=== PATIENT | male | born 1960 | race Caucasian/White ===

== ENCOUNTER 2023-06-06 15:38 | Emergency (ER) | payer SELFPAY ==
[2023-06-06] MEDS: hydrALAZINE 20 MG/ML SDV IVPUSH ONE ×2 (15:58→16:46)
[2023-06-06] MEDS: Sodium Chloride 0.9% 10 ML Syringe FLUSH PRN (16:00)
[2023-06-06] MEDS: Sodium Chloride 0.9% 1,000 ML IV SCH (16:00)
[2023-06-06 16:13] LABS: BASOPHILS ABSOLUTE AUTO 0.03 10^3/uL (0.00-0.10); BASOPHILS PERCENT AUTO 0.4 % (0.0-1.0); EOSINOPHILS ABSOLUTE AUTO 0.13 10^3/uL (0.10-0.30); EOSINOPHILS PERCENT AUTO 1.5 % (1.0-3.0); HEMATOCRIT 52.6 % (40.0-52.0); HEMOGLOBIN 17.4 g/dL (13.0-17.0); IMMATURE GRAN ABSOLUTE AUTO 0.03 10^3/uL (0.00-0.50); IMMATURE GRAN PERCENT AUTO 0.4 % (0.0-5.0); LYMPHOCYTES ABSOLUTE AUTO 2.01 10^3/uL (1.00-4.00); LYMPHOCYTES PERCENT AUTO 23.6 % (20.0-40.0); MEAN CORPUSCULAR HEMOGLOBIN 30.6 pg (27.0-31.0); MEAN CORPUSCULAR HGB CONC 33.1 g/dL (32.0-36.0); MEAN CORPUSCULAR VOLUME 92.6 fL (82.0-92.0); MEAN PLATELET VOLUME 11.4 fL (7.4-10.4); MONOCYTES ABSOLUTE AUTO 0.84 10^3/uL (0.10-0.80); MONOCYTES PERCENT AUTO 9.9 % (2.0-8.0); NEUTROPHILS ABSOLUTE AUTO 5.46 10^3/uL (2.50-7.00); NEUTROPHILS PERCENT AUTO 64.2 % (50.0-70.0); PLATELET COUNT,PLT 169 10^3/uL (150-400); RED BLOOD CELL COUNT 5.68 10^6/uL (4.50-6.00); RED CELL DISTRIBUTION WIDTH 11.8 % (11.5-14.5)
[2023-06-06 16:33] LABS: ALANINE AMINOTRANSFERASE,ALT 24 U/L (14-63); ALBUMIN 3.91 g/dL (3.40-5.00); ALKALINE PHOSPHATASE 106 U/L (46-116); ANION GAP 11.5 mmol/L (5-15); ASPARTATE AMNIOTRANSFERASE,AST 17 U/L (15-37); BILIRUBIN TOTAL 0.4 mg/dL (0.2-1.0); BLOOD UREA NITROGEN,BUN 13 mg/dL (7-18); CALCIUM 9.3 mg/dL (8.7-10.3); CARBON DIOXIDE,CO2 29.6 mmol/L (21.0-32.0); CHLORIDE,CL 99 mmol/L (98-107); CREATININE 0.94 mg/dL (0.51-1.17); EST CRCL DRUG DOSING (CG) 90.58 mL/min; GLUCOSE RANDOM 108 mg/dL (70-140); LIPASE 96 U/L (73-393); POTASSIUM,K 4.1 mmol/L (3.5-5.1); PROTEIN TOTAL,TP 8.4 g/dL (6.4-8.2); SODIUM,NA 136 mmol/L (136-145)
[2023-06-06 16:34] LABS: APPEARANCE,URINE CLEAR (CLEAR); BILIRUBIN,URINE NEGATIVE (NEGATIVE); COLOR,URINE DARK YELLOW (YELLOW); GLUCOSE,URINE NEGATIVE (NEGATIVE); KETONES,URINE NEGATIVE (NEGATIVE); LEUKOCYTE ESTERASE,URINE NEGATIVE (NEGATIVE); NITRITE,URINE NEGATIVE (NEGATIVE); OCCULT BLOOD,URINE NEGATIVE (NEGATIVE); PH,URINE 5.5 (5.0-9.0); PROTEIN,URINE NEGATIVE (NEGATIVE); UROBILINOGEN,URINE 0.2 E.U./dL (0.2-1.0)
[2023-06-06 16:35] LABS: ESTIMATED GFR 92 mL/min (>=60)
[2023-06-06 16:57] LABS: B-TYPE NATRIURETIC PEPTIDE,BNP < 5 pg/mL (0-100)
[2023-06-06] MEDS: Sodium Chloride 0.9% 50 ML IV SCH (17:47)
[2023-06-06] MEDS: Iopamidol 755 Mg/ML 100 ML Bottle IV ONE (17:47)
[2023-06-06] MEDS: Metoprolol Tartrate 5 MG/5 ML SDV IVPUSH ONE (18:20)
[2023-06-06] MEDS: Metoprolol Succinate 25 MG Tab.ER PO ONE (19:43)
[2023-06-06] MEDS: LORazepam 0.5 MG Tab PO ONE (19:43)
== END 2023-06-06 20:09 | disposition home or self-care (01) ==
LOC: KA.ED 15:38
DX: H53.8 Other visual disturbances (principal); I66.02 Occlusion and stenosis of left middle cerebral artery; F41.9 Anxiety disorder, unspecified; R91.1 Solitary pulmonary nodule; R53.81 Other malaise; I10 Essential (primary) hypertension; F17.210 Nicotine dependence, cigarettes, uncomplicated
CPT/HCPCS: 36415; 70496; 70498; 71046; 80053; 81003; 83690; 83880; 84484; 85025; 85379; 87040; 96361; 96374; 96375; 96376; 99284; A9270; J0360; J3490; J7030; Q9967

== ENCOUNTER 2023-06-16 10:41 | Emergency (ER) | payer MEDICAID ==
[2023-06-16 11:05] LABS: BASOPHILS ABSOLUTE AUTO 0.03 10^3/uL (0.00-0.10); BASOPHILS PERCENT AUTO 0.4 % (0.0-1.0); EOSINOPHILS PERCENT AUTO 2.8 % (1.0-3.0); HEMATOCRIT 48.5 % (40.0-52.0); HEMOGLOBIN 15.8 g/dL (13.0-17.0); IMMATURE GRAN ABSOLUTE AUTO 0.02 10^3/uL (0.00-0.50); IMMATURE GRAN PERCENT AUTO 0.3 % (0.0-5.0); LYMPHOCYTES ABSOLUTE AUTO 1.37 10^3/uL (1.00-4.00); LYMPHOCYTES PERCENT AUTO 19.5 % (20.0-40.0); MEAN CORPUSCULAR HEMOGLOBIN 30.7 pg (27.0-31.0); MEAN CORPUSCULAR HGB CONC 32.6 g/dL (32.0-36.0); MEAN CORPUSCULAR VOLUME 94.2 fL (82.0-92.0); MEAN PLATELET VOLUME 10.3 fL (7.4-10.4); MONOCYTES ABSOLUTE AUTO 0.57 10^3/uL (0.10-0.80); MONOCYTES PERCENT AUTO 8.1 % (2.0-8.0); NEUTROPHILS ABSOLUTE AUTO 4.84 10^3/uL (2.50-7.00); NEUTROPHILS PERCENT AUTO 68.9 % (50.0-70.0); PLATELET COUNT,PLT 181 10^3/uL (150-400); RED BLOOD CELL COUNT 5.15 10^6/uL (4.50-6.00); WHITE BLOOD CELL COUNT,WBC 7.03 10^3/uL (5.00-10.00)
[2023-06-16 11:21] LABS: ANION GAP 12.5 mmol/L (5-15); CALCIUM 8.7 mg/dL (8.7-10.3); CARBON DIOXIDE,CO2 30.4 mmol/L (21.0-32.0); CREATININE 0.91 mg/dL (0.51-1.17); EST CRCL DRUG DOSING (CG) 93.57 mL/min; POTASSIUM,K 3.9 mmol/L (3.5-5.1)
== END 2023-06-16 12:32 | disposition home or self-care (01) ==
LOC: KA.ED 10:41
DX: I10 Essential (primary) hypertension (principal); H53.9 Unspecified visual disturbance
CPT/HCPCS: 36415; 80048; 85025; 93005; 93010; 99283; 99284

== ENCOUNTER 2023-08-17 07:53 | Emergency (ER) | payer SELFPAY | END 2023-08-17 08:50 | disposition home or self-care (01) | LOC: KA.ED 07:53 | DX: B02.9 Zoster without complications (principal); I10 Essential (primary) hypertension; F17.210 Nicotine dependence, cigarettes, uncomplicated; Z79.899 Other long term (current) drug therapy | CPT/HCPCS: 99283 ==